=== PATIENT | female | born 1960 | race Caucasian/White ===

== ENCOUNTER 2018-07-28 02:43 | Observation (INO) ==
[2018-07-28] MEDS ORDERED: Acetaminophen 500 MG Tablet PO PRN (09:36)
[2018-07-28] MEDS ORDERED: Dextrose 50% in Water 50 ML Vial IV.PUSH PRN (09:39)
[2018-07-28] MEDS ORDERED: Morphine Sulfate Inj 2 MG/ML Vial IV.PUSH PRN (09:41)
--- NOTE | 2018-07-28 10:23 | P.HP ---
History of Present Illness Primary Care Physician: Minna Marroquin Chief Complaint: Cough, shortness of breath, chest pain History of Present Illness: This is a 57-year-old female patient with a known medical history of hypertension, diabetes, hypothyroidism and asthma who presented to the ED with complaints of a week and a half with complaints of shortness of breath has that has been worsening over the past few days with associated cough and chest pain. Patient states that around a week and half ago patient had her first episode of severe coughing, she states that she has had sinus congestion and intermittent complete blockage in her left nare, she states that when these coughing episodes occur as well as inability to pass air through her nare she becomes short of breath and anxious. During that time she states that with the coughing she develops a chest tightness, states it feels like "someone is sitting on her chest". Patient states that the pain worsens with the cough. She states that when she stands up and moves around that the pain gets better. She states that she uses her nebulizer with some relief of the pain and coughing. Usually these episodes last a few hours and then go away. She states that over the past week and a half she has had 3 of these same episodes and last evening she states the shortness of breath worsened and therefore she presented to the hospital. Patient does have a history of asthma and bronchitis , her last asthma exacerbation was 3 years ago and requiring hospitalization after an EGD with bronchospasms. She states that since that time she has been doing well with her nebulizer treatments at home. She takes Singulair as well. Does not follow with a pole framer currently. Denies any recent antibiotics or steroids. She does follow with an medical billing and coding instructor for hypothyroidism. She states that she also was placed on citalopram last year for depression and she stopped taking this suddenly about a month ago. Since that time she has been developing these said symptoms above. She follows closely with her primary care doctor for control of her diabetes and hypertension, she states she has hyperlipidemia as well. Denies any stress test in the past. Denies any tobacco abuse. Family history is not significant for any cardiovascular disease. At the time of assessment, patient is lying in bed with some coughing and intermittent shortness of breath. Chest pain comes and goes with the coughing. - Diagnosis (1) Cough (2) Sinus congestion (3) Shortness of breath (4) Chest pain Review of Systems All other systems reviewed negative except as stated in HPI PMFSH - History History Provided By: Patient - Medical History Medical History: Medical History (Last Updated 07/28/18 @ 10:22 by Gloria Gray) Asthma Bronchitis Depression Diabetes History of hysterectomy Hypertension Hypothyroidism - Surgical History Surgical History: Surgical History (Last Updated 07/28/18 @ 10:22 by Gloria Gray) History of hernia repair History of tonsillectomy Hx of cholecystectomy - Family History Family History: Family History (Last Updated 07/28/18 @ 10:21 by Gloria Gray) Other Diabetes - Social History I have reviewed the patient's Social History: Yes - Tobacco History Second Hand Smoke Exposure: No Smoking Status: Never smoker - Alcohol History How Often Do You Have a Drink Containing Alcohol: Monthly or less - Substance Use History Substance History: No History of Abuse Medications and Allergies Active Medications: Active Medications Acetaminophen (Tylenol) 500 mg PO Q4H PRN PRN Reason: HEADACHE Dextrose (D50w Vial) 50 ml IV.PUSH UNSCH PRN PRN Reason: PER HYPOGLYCEMIA PROTOCOL Glucagon (Glucagon Inj) 1 mg OTHER PRN PRN PRN Reason: for Hypoglycemia Protocol Insulin Aspart (Novolog Insulin Correctional Sugar Inj) 0 unit SQ ACHS ANNA; Protocol Morphine Sulfate (Morphine Inj) 2 mg IV.PUSH Q4H PRN PRN Reason: PAIN SCALE 1 TO 10 Ondansetron HCl (Zofran Inj) 4 mg IV.PUSH Q6H PRN PRN Reason: NAUSEA Sodium Chloride (Ns Flush) 2 ml IV.FLUSH BID ANNA Sodium Chloride (Ns Flush) 2 ml IV.FLUSH PRN PRN PRN Reason: FLUSH AFTER USING IV ACCESS Allergies Allergy/AdvReac Type Severity Reaction Status Date / Time No Known Allergies Allergy Verified 07/28/18 02:51 Home Medications Medication Instructions Recorded Confirmed Type aspirin 81 mg PO DAILY 07/28/18 07/28/18 History dulaglutide [Trulicity] 0.75 mg SUBCUT QWEEK 07/28/18 07/28/18 History fenofibric acid (choline) 45 mg PO DAILY 07/28/18 07/28/18 History insulin aspart U-100 [Novolog 5 unit SUBCUT QAM AND QPM 07/28/18 07/28/18 History Flexpen U-100 Insulin] insulin aspart U-100 [Novolog 8 unit SUBCUT AC DINNER 07/28/18 07/28/18 History Flexpen U-100 Insulin] insulin degludec [Tresiba 25 unit SUBCUT DAILY 07/28/18 07/28/18 History FlexTouch U-200] levothyroxine 75 mcg PO DAILY 07/28/18 07/28/18 History lisinopril 10 mg PO DAILY 07/28/18 07/28/18 History metformin 500 mg PO BID 07/28/18 07/28/18 History montelukast 10 mg PO DAILY 07/28/18 07/28/18 History omega-3 acid ethyl esters 1 cap PO QID 07/28/18 07/28/18 History rosuvastatin 40 mg PO HS 07/28/18 07/28/18 History Exam Vital signs: Vital Signs 07/28/18 08:52 07/28/18 08:55 Temperature 97.0 F L Pulse Rate 85 79 Respiratory Rate 16 Blood Pressure 108/74 Pulse Oximetry 97 Intake & Output 07/27/18 07/28/18 07/28/18 18:59 06:59 18:59 Weight 87.5 kg Other: Weight On Admission 87.5 kg Narrative: GENERAL: Well-developed, well-nourished patient in NAD. On room air. SKIN: Warm and dry. No rash. HEAD: Normocephalic. Atraumatic. EYES: Pupils equal and round. No scleral icterus. No injection or drainage. ENT: No nasal bleeding or discharge. Mucous membranes pink and moist. NECK: Supple. Trachea midline. CARDIOVASCULAR: Regular rate and rhythm. S1, S2 noted. No murmur appreciated. RESPIRATORY: No accessory muscle use. Clear to auscultation. Breath sounds equal bilaterally. No wheezing noted. GASTROINTESTINAL: Abdomen soft, non-tender, nondistended. Normoactive bowel sounds x4. Midline scar healed. MUSCULOSKELETAL: No obvious deformities. Extremities without clubbing, cyanosis , or edema. NEUROLOGICAL: Awake and alert. No obvious cranial nerve deficits. Motor grossly within normal limits. 5/5 muscle strength in bilateral upper and lower extremities. Normal speech. PSYCHIATRIC: Appropriate mood and affect; insight and judgment normal. Caprini VTE Risk Assessment Caprini VTE Risk Assessment: No/Low Risk (score <= 1) Caprini Risk Assessment Model: Point Value = 1 Point Value = 2 Point Value = 3 Point Value = 5 Age 41-60 Minor surgery BMI > 25 kg/m2 Swollen legs Varicose veins or History of unexplained or recurrent spontaneous Oral contraceptives or hormone replacement Sepsis (< 1 month) Serious lung disease, including pneumonia (< 1 month) Abnormal pulmonary function Acute myocardial infarction Congestive heart failure (< 1 month) History of inflammatory bowel disease Medical patient at bed rest Age 61-74 Arthroscopic surgery Major open surgery (> 45 min) Laparoscopic surgery (> 45 min) Malignancy Confined to bed (> 72 hours) Immobilizing plaster cast Central venous access Age >= 75 History of VTE Family history of VTE Factor V Leiden Prothrombin [id number] Lupus anticoagulant Anticardiolipin antibodies Elevated serum homocysteine Heparin-induced thrombocytopenia Other congenital or acquired thrombophilia Stroke (< 1 month) Elective arthroplasty Hip, pelvis, or leg fracture Acute spinal cord injury (< 1 month) Prophylaxis Regimen: Total Risk Factor Score Risk Level Prophylaxis Regimen 0-1 Low Early ambulation 2 Moderate Order ONE of the following: *Sequential Compression Device (SCD) *Heparin 5000 units SQ BID 3-4 Higher Order ONE of the following medications: *Heparin 5000 units SQ TID *Enoxaparin/Lovenox 40 mg SQ daily (WT < 150 kg, CrCl > 30 mL/min) *Enoxaparin/Lovenox 30 mg SQ daily (WT < 150 kg, CrCl > 10-29 mL/min) *Enoxaparin/Lovenox 30 mg SQ BID (WT < 150 kg, CrCl > 30 mL/min) AND/OR *Sequential Compression Device (SCD) 5 or more Highest Order ONE of the following medications: *Heparin 5000 units SQ TID (Preferred with Epidurals) *Enoxaparin/Lovenox 40 mg SQ daily (WT < 150 kg, CrCl > 30 mL/min) *Enoxaparin/Lovenox 30 mg SQ daily (WT < 150 kg, CrCl > 10-29 mL/min) *Enoxaparin/Lovenox 30 mg SQ BID (WT < 150 kg, CrCl > 30 mL/min) AND *Sequential Compression Device (SCD) Assessment and Plan - Assessment (1) Cough Code(s): R05 - Cough Status: Acute (2) Sinus congestion Code(s): R09.81 - Nasal congestion Status: Acute (3) Shortness of breath Code(s): R06.02 - Shortness of breath Status: Acute (4) Chest pain Code(s): R07.9 - Chest pain, unspecified Status: Acute - Plan This is a 57-year-old female patient who presented to the ED with Chest pain, atypical -Patient presents with a 1 1/2 week complaint of cough associated with intermittent chest pain. -She has been admitted to the chest pain center for observation. Serial EKGs and serial troponins have been ordered for ruling out ACS purposes. Initial 2 troponins flat. Await third enzyme. -EKG reviewed showing sinus rhythm with controlled heart rate, bundle-branch noted. Continued on cardiac telemetry, monitor for any arrhythmias. -Patient has been given nitroglycerin with some relief of the pain. -CBC and BMP reviewed, essentially unremarkable. D-dimer is negative. No suspecting a PE. -If ACS was ruled out with serial EKGs and serial troponins, patient will undergo a cardiac nuclear stress test to further rule out any ischemia. -Patient is stable at this time and agreeable to plan. Sinusitis Cough History of asthma with possible exacerbation -Chest x-ray reviewed, no acute cardiopulmonary disease noted. Patient is on room air, breathing comfortably. Some expiratory wheezing noted. -Will start on steroids and antibiotics. -Continue nebulizers. -We will start on Mucinex. Tessalon Perles as needed. Type 2 diabetes mellitus, chronic -Accu check before meals at bedtime, sliding scale, cover as needed. Monitor for hypoglycemia, n.p.o. for stress test. Hypertension, chronic -Continue to monitor blood pressure trends. Continue on home medications. Hypothyroidism, chronic -Levothyroxine. Check TSH. Hyperlipidemia, chronic -Continue on home statin. DVT prophylaxis: SCDs.
[2018-07-28] MEDS ORDERED: Ketorolac Inj 30 MG/ML (IVP) Vial IV.PUSH PRN (10:27)
[2018-07-28] MEDS ORDERED: Benzonatate 100 MG Capsule PO PRN (10:29)
[2018-07-28] MEDS: Azithromycin 250 MG Tablet PO SCH (11:11)
[2018-07-28] MEDS: guaiFENesin 600 MG ER Tablet PO SCH ×3 (11:11→20:38)
[2018-07-28] MEDS: predniSONE 20 MG Tablet PO SCH (11:12)
[2018-07-28] MEDS: Insulin NovoLOG Aspart Correctional Sugar Inj SQ SCH ×4 (11:17→20:39)
[2018-07-28 11:26] LABS: Creatine Kinase 119 U/L (26-192)
--- NOTE | 2018-07-28 12:29 | ECG ---
Date Performed: 07/28/2018 Time Performed: 10:50:22 PTAGE: 57 years EKG: Sinus rhythm INCOMPLETE RIGHT BUNDLE BRANCH BLOCK BORDERLINE ECG NO PREVIOUS TRACING DOCTOR: Maico Carnes Interpretating Date/Time 07/28/2018 12:28:21
[2018-07-28] MEDS ORDERED: Regadenoson Inj 0.4 MG/5 ML Syringe IV.PUSH ONE (13:45)
[2018-07-28 14:01] LABS: Creatine Kinase 115 U/L (26-192)
--- NOTE | 2018-07-28 15:27 | NM ---
EXAM DATE: 07/28/2018 2:53 PM EST AGE/SEX: 57 years / Female INDICATIONS:Right Bundle Branch Block. Angina Chest pain. CLINICAL DATA: This is the patient's initial encounter. Patient reports that signs and symptoms have been present for 1 day and indicates a pain score of 1/10. MEDICAL/SURGICAL HISTORY: Hypertension. Asthma. Diabetes mellitus type II. Hysterectomy. Cho lecystectomy. COMPARISON: No prior exams available for comparison. DOSE: 8.1 mCi Tc 99m Myoview at rest 26.3 mCi [id number] at stress 0.4 mg Lexiscan STRESS SYMPTOMS: Nausea. EJECTION FRACTION: >70 % TECHNIQUE: The patient underwent pharmacologic stress with infusion of prescribed dose. Continuous ECG tracing was monitored during stress. Gated SPECT imaging was performed after stress and conventi onal SPECT imaging was performed at rest. The examination was performed on a SPECT/CT scanner, both attenuation and non-corrected datasets were reviewed. FINDINGS: Distribution: The maximum perfused segment at stress is in the anterior anterior lateral wall. Minim al gut activity does obscure the inferior wall. Perfusion Study: The pattern of perfusion at stress is within normal limits. Gated Study: There are intact wall motion and wall thickening without hypokinetic or dyskinetic segm ents. The ejection fraction is calculated at >70%. RISK CATEGORY: Low (<1% Annual Motality Rate) CONCLUSION: 1. Negative examination for stress-induced ischemia. Perfusion is better at stress than rest.. Electronically signed by: Maninder Chand MD 07/28/2018 3:26 PM EST
--- NOTE | 2018-07-28 15:34 | TR ---
Date Performed: 07/28/2018 Time Performed: 14:07:57 DOCTOR: Giancarlo Simms DRUG LIST: CLINICAL HISTORY: REASON FOR TEST: REASON FOR ENDING: OBSERVATION: CONCLUSION: COMMENTS: Lexiscan stress test was performed under standard four minute protocol. Radionuclide was injected one minute prior to ending the test. No electrocardiographic abormalities were present t o suggest ischemia. Nuclear imaging and interpretation are pending.
[2018-07-29 01:08] VITALS: O2SAT 95
[2018-07-29 05:16] VITALS: BP 117/59
[2018-07-29] MEDS ORDERED: Levothyroxine 75 MCG Tablet PO SCH (06:00)
--- NOTE | 2018-07-29 08:04 | P.PNIM ---
Subjective Interval history: Follow up chest pain and sinus congestion. Patient seen and examined, sitting on side of bed comfortably eating breakfast. States she feels much improved overnight. No cp. Lexiscan is negative. VSS. Continued on steroids and antibiotics. VSS. Will DC home with RX. Patients DM is uncontrolled, advised patient to follow up with PCP and comply with diabetic diet and regimen. Patient states she is motivated and needs to take control now. Physical Exam Vital signs: Vital Signs 07/28/18 08:52 07/28/18 08:55 07/28/18 12:00 Temperature 97.0 F L 97.1 F L Pulse Rate 85 79 73 Respiratory Rate 16 20 Blood Pressure 108/74 114/68 Pulse Oximetry 97 94 L 07/28/18 13:00 07/28/18 16:00 07/28/18 20:00 Temperature 97.8 F 97.7 F Pulse Rate 87 87 89 Respiratory Rate 18 20 20 Blood Pressure 130/74 113/69 Pulse Oximetry 92 L 93 L 07/28/18 20:05 07/28/18 20:11 07/29/18 00:00 Temperature 98.4 F Pulse Rate 90 92 H 83 Respiratory Rate 16 20 Blood Pressure 107/56 L Pulse Oximetry 95 07/29/18 00:03 07/29/18 04:00 07/29/18 07:36 Temperature 96.3 F L Pulse Rate 78 79 80 Respiratory Rate 20 16 Blood Pressure 117/59 L Pulse Oximetry 95 Intake & Output 07/28/18 07/29/18 07/29/18 18:59 06:59 18:59 Intake Total 240 / 240 360 / 360 Balance 240 / 240 360 / 360 Weight 87.5 kg 87.8 kg Intake: Oral 240 / 240 360 / 360 Other: # Voids 3 2 Date of Last Bowel Movement 07/27/18 # Bowel Movements 1 Weight On Admission 87.5 kg Narrative: GENERAL: Well-developed, well-nourished patient in NAD. On room air. SKIN: Warm and dry. No rash. HEAD: Normocephalic. Atraumatic. EYES: Pupils equal and round. No scleral icterus. No injection or drainage. ENT: No nasal bleeding or discharge. Mucous membranes pink and moist. NECK: Supple. Trachea midline. CARDIOVASCULAR: Regular rate and rhythm. S1, S2 noted. No murmur appreciated. RESPIRATORY: No accessory muscle use. Clear to auscultation. Breath sounds equal bilaterally. No wheezing noted. GASTROINTESTINAL: Abdomen soft, non-tender, nondistended. Normoactive bowel sounds x4. Midline scar healed. MUSCULOSKELETAL: No obvious deformities. Extremities without clubbing, cyanosis , or edema. NEUROLOGICAL: Awake and alert. No obvious cranial nerve deficits. Motor grossly within normal limits. 5/5 muscle strength in bilateral upper and lower extremities. Normal speech. PSYCHIATRIC: Appropriate mood and affect; insight and judgment normal. Results - Labs Laboratory Results - last 24 hr 07/28/18 07/28/18 07/28/18 10:42 10:42 11:07 POC Glucose 266 H Total Creatine Kinase 119 Troponin I Less than 0.02 L TSH 1.670 07/28/18 07/28/18 07/28/18 13:24 17:03 19:37 POC Glucose 366 H 371 H Total Creatine Kinase 115 Troponin I Less than 0.02 L TSH 07/29/18 07:44 POC Glucose 224 H Total Creatine Kinase Troponin I TSH - Imaging Impressions Myocardial Perfusion Scan Nuc Med 07/28/18 00:00 CONCLUSION: 1. Negative examination for stress-induced ischemia. Perfusion is better at stress than rest.. Assessment and Plan - Assessment (1) Cough Code(s): R05 - Cough Status: Acute (2) Sinus congestion Code(s): R09.81 - Nasal congestion Status: Acute (3) Shortness of breath Code(s): R06.02 - Shortness of breath Status: Acute (4) Chest pain Code(s): R07.9 - Chest pain, unspecified Status: Inactive - Plan This is a 57-year-old female patient who presented to the ED with Chest pain, atypical -Patient presents with a 1 1/2 week complaint of cough associated with intermittent chest pain. -She has been admitted to the chest pain center for observation. Serial EKGs and serial troponins have been ordered for ruling out ACS purposes. Initial 2 troponins flat. Await third enzyme. -EKG reviewed showing sinus rhythm with controlled heart rate, bundle-branch noted. Continued on cardiac telemetry, monitor for any arrhythmias. -Patient has been given nitroglycerin with some relief of the pain. -CBC and BMP reviewed, essentially unremarkable. D-dimer is negative. No suspecting a PE. -ACS was ruled out with serial EKGs and serial troponins, patient underwent a cardiac nuclear stress test to further rule out any ischemia which was negative. Sinusitis Cough History of asthma with possible exacerbation -Chest x-ray reviewed, no acute cardiopulmonary disease noted. Patient is on room air, breathing comfortably. Some expiratory wheezing noted. -Will start on steroids and antibiotics. Continue on DC. -Continue nebulizers. Continue inhalers on DC. -We will start on Mucinex. Tessalon Perles as needed. These have been effective will write RX for DC. Type 2 diabetes mellitus, chronic, uncontrolled. Noncompliant -Accu check before meals at bedtime, sliding scale, cover as needed. Monitor for hypoglycemia, n.p.o. for stress test. -Hyperglycemia noted, patient is on steroids and also was not on full insulin regimen secondary to being NPO. -Will continue home medications, advised to follow up with PCP and diabetic diet. Patient states she is going to be more compliant with her diabetic regimen. Hypertension, chronic -Continue to monitor blood pressure trends. Continue on home medications. Hypothyroidism, chronic -Levothyroxine. TSH normal. Continue home RX. Hyperlipidemia, chronic -Continue on home statin. DVT prophylaxis: SCDs. DC home. RX as written. Diabetic diet. Activity as tolerated. Follow up with PCP.
[2018-07-29] MEDS: Azithromycin 250 MG Tablet PO SCH (08:13)
[2018-07-29] MEDS: predniSONE 20 MG Tablet PO SCH (08:14)
[2018-07-29] MEDS: Insulin NovoLOG Aspart Correctional Sugar Inj SQ SCH (08:14)
[2018-07-29] MEDS: guaiFENesin 600 MG ER Tablet PO SCH (08:14)
[2018-07-29] MEDS ORDERED: Montelukast 10 MG Tablet PO SCH (09:00)
[2018-07-29] MEDS ORDERED: Lisinopril 10 MG Tablet PO SCH (09:00)
[2018-07-29 09:15] VITALS: RESP 20; TEMP 97.3
[2018-07-29 12:32] VITALS: PULSE 103
--- NOTE | 2018-07-29 18:05 | ECG ---
Date Performed: 07/28/2018 Time Performed: 13:29:22 PTAGE: 57 years EKG: Sinus rhythm NORMAL ECG PREVIOUS TRACING : 07/28/2018 10.50 Since the previous tracing, no significant change noted DOCTOR: Cornelius Scherer Interpretating Date/Time 07/29/2018 18:04:55
== END 2018-07-29 11:32 | disposition home or self-care (01) ==
LOC: NEDDLT 02:43 → PH3 02:43
PROVIDERS: ADMIT Hospitalist; ATTEND Hospitalist